=== PATIENT | male | born 1990 | race Caucasian/White ===

== ENCOUNTER 2024-02-01 06:43 | Emergency (ER) | payer OTHER, SELFPAY ==
[2024-02-01 06:54] VITALS: BP 152/84; PULSE 67; RESP 18; TEMP 36.6; O2SAT 99; BMI 28.7
--- NOTE | 2024-02-01 07:10 | ED_ITS ---
HPI - General Adult General Chief complaint: Unspecified Complaint, Adult <Jamari Paredes MD - Last Filed: 02/03/24 11:55> Stated complaint: Feeling cold, weak <Jamari Paredes MD - Last Filed: 02/03/24 11:55> Time Seen by Provider: 02/01/24 07:08 <Jamari Paredes MD - Last Filed: 02/03/24 11:55> History of Present Illness HPI narrative: Patient is a 33-year-old gentleman who comes in today with exhaustion weakness fatigue and inability did get warm. Patient has no fevers is otherwise normal vital signs with the exception of hypertension. Patient states that he has been working really hard in the heat and feels like he is dehydrated he has a mild headache but no stiff neck. No chills no night sweats no nausea no vomiting no fevers no chills. <Jmaari Paredes MD - Last Filed: 02/03/24 11:55> Related Data Home medications: Home Medications ?Medication ?Instructions ?Recorded ?Confirmed buprenorphine 8 mg-naloxone 2 mg 1 film sublingual BID 02/01/24 02/01/24 sublingual film (Suboxone) venlafaxine 150 mg 150 mg PO DAILY 02/01/24 02/01/24 capsule,extended release 24 hr <Jamari Paredes MD - Last Filed: 02/03/24 11:55> Allergies/adverse reactions: Allergies Allergy/AdvReac Type Severity Reaction Status Date / Time No Known Drug Allergies Allergy Verified 02/01/24 06:56 <Jamari Paredes MD - Last Filed: 02/03/24 11:55> Review of Systems Status of ROS: Reports: 10 or more systems reviewed and unremarkable except as noted in History and below <Jamari Paredes MD - Last Filed: 02/03/24 11:55> [facility] Social History: Social History Smoking Status: Current every day smoker What tobacco products do you use: cigarettes Smoking packs per day: 1 Smoking cigarettes per day: 20.0 Do you use any of these nicotine containing products: None Second hand tobacco smoke exposure: No How often do you have a drink containing alcohol: never How often do you have six or more drinks on one occasion: Never AUDIT-C Alcohol total score: 0 Non-prescribed substance use: denies use service: No <Jamari Paredes MD - Last Filed: 02/03/24 11:55> Exam Narrative: Exam Narrative: EXAM GENERAL: Patient appears comfortable and well. EYES: No scleral icterus. ENT: Tympanic membranes and oropharynx normal. THYROID: no thyroid nodules or thyromegaly. LYMPH: No supraclavicular or cervical lymphadenopathy. SKIN: Visible skin seen during exam normal or with benign process only. EXT: No dependent lower extremity pedal edema. HEART: Regular rate and rhythm with no murmurs, rubs, or gallops. LUNGS: Clear to auscultation bilaterally with no crackles or wheezes. ABD: Soft, non tender, non distended. PSYCH: Good eye contact, speech is not pressured. <Jamari Paredes MD - Last Filed: 02/03/24 11:55> Const: Vital Signs, click to edit/add: Vital Signs - 24 hr 02/01/24 06:54 Temperature 97.9 F Pulse Rate [Right Pulse Oximeter] 67 Respiratory Rate 18 Blood Pressure [Ri ght Upper Arm] 152/84 H Pulse Oximetry 99 Oxygen Delivery Me thod Room Air <Jamari Paredes MD - Last Filed: 02/03/24 11:55> Vital Signs, click to edit/add: Vital Signs - 24 hr 02/01/24 06:54 Temperature 97.9 F Pulse Rate [Right Pulse Oximeter] 67 Respiratory Rate 18 Blood Pressure [Ri ght Upper Arm] 152/84 H Pulse Oximetry 99 Oxygen Delivery Me thod Room Air <Chito Bocanegra MD - Last Filed: 02/01/24 08:36> Course Course ED Course: Month certain what his etiology is we did collect COVID RSV and flu and CBC basic metabolic panel give a L of normal saline 30 mg of IV Toradol and reassess. <Jamari Paredes MD - Last Filed: 02/03/24 11:55> Vital Signs Vital signs: Initial Vital Signs Temperature 97.9 F 02/01/24 06:54 Temperature Source Temporal Artery Scan 02/01/24 06:54 Pulse Rate 67 02/01/24 06:54 Respiratory Rate 18 02/01/24 06:54 Blood Pressure 152/84 H 02/01/24 06:54 Blood Pressure Mean 106 H 02/01/24 06:54 Blood Pressure Position Sitting 02/01/24 06:54 Pulse Oximetry 99 02/01/24 06:54 Oxygen Delivery Method Room Air 02/01/24 06:54 Vital Signs Temperature 97.9 F 02/01/24 06:54 Pulse Rate 67 02/01/24 06:54 Respiratory Rate 18 02/01/24 06:54 Blood Pressure 152/84 H 02/01/24 06:54 Pulse Oximetry 99 02/01/24 06:54 Oxygen Delivery Method Room Air 02/01/24 06:54 Temperature 97.9 F 02/01/24 06:54 Pulse Rate 69 02/01/24 08:25 Respiratory Rate 18 02/01/24 08:25 Blood Pressure 141/79 H 02/01/24 08:25 Pulse Oximetry 99 02/01/24 08:25 Oxygen Delivery Method Room Air 02/01/24 08:25 <Jamari Paredes MD - Last Filed: 02/03/24 11:55> Initial Vital Signs Temperature 97.9 F 02/01/24 06:54 Temperature Source Temporal Artery Scan 02/01/24 06:54 Pulse Rate 67 02/01/24 06:54 Respiratory Rate 18 02/01/24 06:54 Blood Pressure 152/84 H 02/01/24 06:54 Blood Pressure Mean 106 H 02/01/24 06:54 Blood Pressure Position Sitting 02/01/24 06:54 Pulse Oximetry 99 02/01/24 06:54 Oxygen Delivery Method Room Air 02/01/24 06:54 Vital Signs Temperature 97.9 F 02/01/24 06:54 Pulse Rate 67 02/01/24 06:54 Respiratory Rate 18 02/01/24 06:54 Blood Pressure 152/84 H 02/01/24 06:54 Pulse Oximetry 99 02/01/24 06:54 Oxygen Delivery Method Room Air 02/01/24 06:54 Temperature 97.9 F 02/01/24 06:54 Pulse Rate 69 02/01/24 08:25 Respiratory Rate 18 02/01/24 08:25 Blood Pressure 141/79 H 02/01/24 08:25 Pulse Oximetry 99 02/01/24 08:25 Oxygen Delivery Method Room Air 02/01/24 08:25 <Chito Bocanegra MD - Last Filed: 02/01/24 08:36> Medications Administered Medications: Discontinued Medications Generic Name Dose Route Start Last Admin Trade Name Freq PRN Reason Stop Dose Admin Sodium Chloride 1,000 mls @ 1,000 mls/hr 02/01/24 07:09 02/01/24 08:28 0.9 % Sodium Chloride 1000 Ml IV 02/01/24 08:08 Infused .Q1H CHRIS Infusion Ketorolac Tromethamine 30 mg 02/01/24 07:09 02/01/24 07:27 Ketorolac 30 Mg/Ml Inj IVP 02/01/24 07:10 30 mg ONCE ONE Administration <Jamari Paredes MD - Last Filed: 02/03/24 11:55> Discontinued Medications Generic Name Dose Route Start Last Admin Trade Name Freq PRN Reason Stop Dose Admin Sodium Chloride 1,000 mls @ 1,000 mls/hr 02/01/24 07:09 02/01/24 08:28 0.9 % Sodium Chloride 1000 Ml IV 02/01/24 08:08 Infused .Q1H CHRIS Infusion Ketorolac Tromethamine 30 mg 02/01/24 07:09 02/01/24 07:27 Ketorolac 30 Mg/Ml Inj IVP 02/01/24 07:10 30 mg ONCE ONE Administration <Chito Bocanegra MD - Last Filed: 02/01/24 08:36> Medical Decision Making MDM Narrative Medical decision making narrative: This patient comes in with generalized malaise after working out in the heat and not being accustomed for this activity. The patient received IV fluids and Toradol and labs returned with reassuring results. He states that he is feeling better. He is okay to be discharged home. <Chito Bocanegra MD - [facility] Filed: 02/01/24 08:36> Lab Data Labs: Lab Results 02/01/24 02/01/24 Range/Units 07:20 Unknown WBC 5.38 (4.50-11.00) K/uL RBC 4.67 (4.30-5.90) m/uL Hgb 13.5 (13.5-17.5) gm/dL Hct 41.1 (37.0-53.0) % MCV 88 (80-100) fL MCH 29 (26-34) pg MCHC 33 (32-36) gm/dL RDW Coeff of Richie 12.0 (11.5-15.5) % Plt Count 224 (140-440) K/uL Neut % (Auto) 47.6 (42.0-72.0) % Lymph % (Auto) 33.6 (20-44) % Lipscomb % (Auto) 13.4 H (0.0-11.0) % Eos % (Auto) 4.6 (0.0-7.0) % Baso % (Auto) 0.6 (0.0-3.0) % Neut # (Auto) 2.56 (1.7-7.0) K/uL Lymph # (Auto) 1.81 (0.90-2.90) K/uL Lipscomb # (Auto) 0.70 (0.00-0.90) K/UL Eos # (Auto) 0.25 (0.00-0.50) K/uL Baso # (Auto) 0.03 (0.00-0.30) K/uL Abs Immat Gran (auto) 0.01 (0.00-0.30) K/uL Imm/Tot Granulo (auto) 0.2 % Sodium 137 (135-149) mmol/L Potassium 3.8 (3.6-5.1) mmol/L Chloride 106 (96-114) mmol/L Carbon Dioxide 25 (20-32) mmol/L Anion Gap 6 L (7-15) mEq/L BUN 12 (5-24) mg/dL Creatinine 0.8 (0.5-1.5) mg/dL Estimated Creat Clear 138.14 Estimated GFR 121 ml/min Glucose 119 H (60-115) mg/dL Calcium 8.8 (8.4-10.6) mg/dL SARS-CoV-2 (PCR) Negative SARS-CoV-2 (Negative) Influenza Type A (PCR) Negative PCR FLU A (Negative) Influenza Type B (PCR) Negative PCR FLU B (Negative) RSV (PCR) Negative PCR RSV (Negative) <Jamari Paredes MD - Last Filed: 02/03/24 11:55> Lab Results 02/01/24 02/01/24 Range/Units 07:20 Unknown WBC 5.38 (4.50-11.00) K/uL RBC 4.67 (4.30-5.90) m/uL Hgb 13.5 (13.5-17.5) gm/dL Hct 41.1 (37.0-53.0) % MCV 88 (80-100) fL MCH 29 (26-34) pg MCHC 33 (32-36) gm/dL RDW Coeff of Richie 12.0 (11.5-15.5) % Plt Count 224 (140-440) K/uL Neut % (Auto) 47.6 (42.0-72.0) % Lymph % (Auto) 33.6 (20-44) % Lipscomb % (Auto) 13.4 H (0.0-11.0) % Eos % (Auto) 4.6 (0.0-7.0) % Baso % (Auto) 0.6 (0.0-3.0) % Neut # (Auto) 2.56 (1.7-7.0) K/uL Lymph # (Auto) 1.81 (0.90-2.90) K/uL Lipscomb # (Auto) 0.70 (0.00-0.90) K/UL Eos # (Auto) 0.25 (0.00-0.50) K/uL Baso # (Auto) 0.03 (0.00-0.30) K/uL Abs Immat Gran (auto) 0.01 (0.00-0.30) K/uL Imm/Tot Granulo (auto) 0.2 % Sodium 137 (135-149) mmol/L Potassium 3.8 (3.6-5.1) mmol/L Chloride 106 (96-114) mmol/L Carbon Dioxide 25 (20-32) mmol/L Anion Gap 6 L (7-15) mEq/L BUN 12 (5-24) mg/dL Creatinine 0.8 (0.5-1.5) mg/dL Estimated Creat Clear 138.14 Estimated GFR 121 ml/min Glucose 119 H (60-115) mg/dL Calcium 8.8 (8.4-10.6) mg/dL SARS-CoV-2 (PCR) Negative SARS-CoV-2 (Negative) Influenza Type A (PCR) Negative PCR FLU A (Negative) Influenza Type B (PCR) Negative PCR FLU B (Negative) RSV (PCR) Negative PCR RSV (Negative) <Chito Bocanegra MD - Last Filed: 02/01/24 08:36> Discharge Plan Discharge Clinical Impression: Fluid volume depletion <Jamari Paredes MD - Last Filed: 02/03/24 11:55> Patient Disposition: Home, Self-Care <Jamari Paredes MD - Last Filed: 02/03/24 11:55> Condition: Improved <Jamari Paredes MD - Last Filed: 02/03/24 11:55> Additional Instructions: Increase fluids and diet as tolerated. Resume activity also as tolerated. Follow up with MD return if worsening. <Jamari Paredes MD - Last Filed: 02/03/24 11:55> Prescriptions: No Action venlafaxine 150 mg capsule,extended release 24hr 150 mg PO DAILY buprenorphine-naloxone [Suboxone] 8-2 mg film 1 film sublingual BID <Jamari Paredes MD - Last Filed: 02/03/24 11:55> Follow Up/Referrals: Provider,Not a Local [Primary Care Provider] - <Jamari Paredes MD - Last Filed: 02/03/24 11:55> Stand Alone Forms: MyHealth Info Instructions <Jamari Paredes MD - Last Filed: 02/03/24 11:55>
[2024-02-01] MEDS: 0.9 % SODIUM CHLORIDE 1000 ml 1,000 ML IV (07:23)
[2024-02-01] MEDS: KETOROLAC 30 MG/ML inj IVP (07:27)
[2024-02-01 07:30] LABS: Basophils Absolute Auto 0.03 K/uL (0.00-0.30); Basophils Percent Auto 0.6 % (0.0-3.0); Eosinophils Absolute Auto 0.25 K/uL (0.00-0.50); Eosinophils Percent Auto 4.6 % (0.0-7.0); Hematocrit 41.1 % (37.0-53.0); Hemoglobin* 13.5 gm/dL (13.5-17.5); Immature Granulocytes Abs Auto 0.01 K/uL (0.00-0.30); Immature Granulocytes Pct Auto 0.2 %; Lymphocytes Absolute Auto 1.81 K/uL (0.90-2.90); Lymphocytes Percent Auto 33.6 % (20-44); Mean Corpuscular HGB Conc 33 gm/dL (32-36); Mean Corpuscular Hemoglobin 29 pg (26-34); Mean Corpuscular Volume 88 fL (80-100); Monocytes Percent Auto 13.4 % (0.0-11.0); Neutrophils Absolute Auto 2.56 K/uL (1.7-7.0); Neutrophils Percent Auto 47.6 % (42.0-72.0); Platelet Count* 224 K/uL (140-440); Red Blood Count 4.67 m/uL (4.30-5.90); White Blood Count* 5.38 K/uL (4.50-11.00)
[2024-02-01 07:38] LABS: Slide Review Reflex No
[2024-02-01 08:11] LABS: Chloride* 106 mmol/L (96-114); Potassium* 3.8 mmol/L (3.6-5.1); Sodium* 137 mmol/L (135-149)
[2024-02-01 08:14] LABS: Anion Gap 6 mEq/L (7-15); Blood Urea Nitrogen* 12 mg/dL (5-24); Carbon Dioxide* 25 mmol/L (20-32); Creatinine* 0.8 mg/dL (0.5-1.5); Est. Creatinine Clearance* 138.14; Estimated Glomerular Filt Rate 121 ml/min
[2024-02-01 08:15] LABS: Calcium* 8.8 mg/dL (8.4-10.6); Glucose* 119 mg/dL (60-115)
[2024-02-01 08:19] LABS: PCR FLU A Negative PCR FLU A (Negative); PCR FLU B Negative PCR FLU B (Negative); PCR RSV Negative PCR RSV (Negative); SARS PCR* Negative SARS-CoV-2 (Negative)
[2024-02-01 08:25] VITALS: BP 141/79; PULSE 69; RESP 18; O2SAT 99
== END 2024-02-01 08:47 | disposition home or self-care (01) ==
PROVIDERS: Emergency Provider Internal Medicine
DX: E86.9 Volume depletion, unspecified (principal)
CPT/HCPCS: 36415; 80048; 85025; 87631; 96361; 96374; 99283; 99284; J1885; J7030